=== PATIENT | female | born 1950 | race Caucasian/White ===

== ENCOUNTER → 2022-05-06 08:57 | Outpatient (CLI) | payer OTHER, SELFPAY ==
--- NOTE | 2022-05-06 09:02 | DI.MG.S_ITS ---
BILATERAL DIGITAL SCREENING MAMMOGRAM 3D/2D WITH CAD: 05/06/2022 CLINICAL: Baseline by default. No prior exams were available for comparison. There are scattered areas of fibroglandular density in both breasts (category b / 25%-50% glandular tissue). Current study was also evaluated with a Computer Aided Detection (CAD) system. There is an oval equal density mass with an obscured and circumscribed margin in the right breast at 11 o'clock anterior depth. There are grouped fine calcifications in the left breast at 1 o'clock anterior depth. No other significant masses or calcifications are seen in either breast. IMPRESSION: INCOMPLETE: NEEDS ADDITIONAL IMAGING EVALUATION The oval equal density mass in the right breast at 11 o'clock anterior depth is indeterminate. Mediolateral and spot compression views as well as additional views with possible ultrasound are recommended. The grouped fine calcifications in the left breast at 1 o'clock anterior depth are indeterminate. Mediolateral, spot magnification, and additional views are recommended. Based on the Tyrer Cuzick model (a risk assessment model) the patient's lifetime risk is 4.1% and her 10 year risk is 2.4%. According to the ACR, ACS, and NCCN guidelines, an annual breast MRI exam along with mammogram is recommended if the patient's lifetime risk is 20% or greater. This exam was interpreted at Station ID: [id number]. NOTE: For mammograms, a report in lay terms will be sent to the patient. Approximately 15% of breast malignancies will not be visualized mammographically. In the management of a palpable breast mass, a negative mammogram must not discourage biopsy of a clinically suspicious lesion. Electronically Signed By: Trevor watson/audrey:05/07/2022 19:48:28 letter sent: Additional Imaging Needed ACR BI-RADS Category 0: Incomplete 3340F
== END ==
PROVIDERS: Visit Provider Family Medicine
DX: Z13.21 Encounter for screening for nutritional disorder (principal)
CPT/HCPCS: 77063; 77067

== ENCOUNTER → 2023-03-05 11:38 | Outpatient (CLI) | payer OTHER, SELFPAY ==
--- NOTE | 2023-03-05 | DI.RAD.S_ITS ---
Bone Density Report Name: IVAN TEE Age: 72 Sex: Female Ethnicity: White Date of : 1950 Indication: postmenopausal; screening for osteoporosis; prior fracture; Referring Provider: ODALIS LAWLER Study: Bone densitometry was performed. Exam Date: March 05, 2023 Accession number: [id number] Bone Density: Region BMD T-score Z-score Classification AP Spine(L1, L2, L3) 0.786 -2.1 0.0 Osteopenia Femoral Neck (Right) 0.631 -2.0 -0.2 Osteopenia Total Hip (Right) 0.701 -2.0 -0.5 Osteopenia Total Forearm (Left) 0.432 -2.7 -0.7 Osteoporosis 1/3 Forearm (Left) 0.530 -2.7 -0.6 Osteoporosis UD Forearm (Left) 0.323 -2.1 -0.6 Osteopenia World Health Organization criteria for BMD impression classify patients as: Normal (T-score at or above -1.0), Osteopenia (T-score between -1.0 and -2.5), or Osteoporosis (T-score at or below -2.5). 10-year Fracture Risk: FRAX not reported because: Prior hip or vertebral fracture Impression: The patient has low bone mass, based on the Total Spine T-score. The patient has risk factors, including: previous fracture. Discussion: INCREASED RISK OF FRACTURE DUE TO HISTORY OF FRACTURE. The patient's previous fracture puts the patient at high risk of a future fracture. In untreated patients, the risk of osteoporotic fracture increases approximately two-fold for each 1.0 SD decrease in T-score. Low bone density is not the only risk factor for fracture; also consider factors such as patient's age, frailty or poor health, risk of falling, risk of injury, previous osteoporotic fracture, family history of osteoporosis, cigarette smoking, low body weight, etc. Not everyone with a low trauma fracture has osteoporosis; osteomalacia and other metabolic bone disorders should also be considered. Patients who have osteoporosis should be evaluated for specific diseases and conditions (secondary causes) that may cause or contribute to bone loss and fracture risk. National Osteoporosis Foundation (NOF) recommends pharmacologic intervention for patients with a prior hip or vertebral fracture regardless of BMD T-score. The patient should follow a healthful lifestyle (good nutrition with adequate calcium and vitamin D, and appropriate weight-bearing exercise). Follow-Up: Consider a repeat BMD and Vertebral Fracture Assessment (VFA) exam in 2 years or sooner if medically necessary, to reassess this patient's status. Reported by: FLAVIA MORRISON M.D. on 03/05/2023 12:29:00 PM.
== END ==
PROVIDERS: PCP Physician Assistant Medical; Referring Provider Physician Assistant Medical; Visit Provider Physician Assistant Medical
DX: Z13.820 Encounter for screening for osteoporosis (principal); M85.89 Other specified disorders of bone density and structure, multiple sites; M81.0 Age-related osteoporosis without current pathological fracture
CPT/HCPCS: 77080; 77081

== ENCOUNTER → 2024-06-13 11:14 | Outpatient (CLI) | payer OTHER, SELFPAY ==
--- NOTE | 2024-06-13 11:16 | DI.MG.S_ITS ---
BILATERAL DIGITAL SCREENING MAMMOGRAM 3D/2D WITH CAD: 06/13/2024 CLINICAL: Routine screening. Family history of breast cancer. Comparison is made to exams dated: 05/06/2022 mammogram - [facility], 04/20/2020 mammogram, and 03/27/2019 mammogram - outside location. The breasts are heterogeneously dense, which may obscure small masses (category c / 51-75% glandular tissue). Current study was also evaluated with a Computer Aided Detection (CAD) system. No significant masses, calcifications, or other findings are seen in either breast. There has been no significant interval change. IMPRESSION: NEGATIVE There is no mammographic evidence of malignancy. A 1 year screening mammogram is recommended. Based on the Tyrer Cuzick model (a risk assessment model) the patient's lifetime risk is 5.5% and her 10 year risk is 3.7%. According to the ACR, ACS, and NCCN guidelines, an annual breast MRI exam along with mammogram is recommended if the patient's lifetime risk is 20% or greater. This exam was interpreted at Station ID: [id number]. NOTE: For mammograms, a report in lay terms will be sent to the patient. Approximately 15% of breast malignancies will not be visualized mammographically. In the management of a palpable breast mass, a negative mammogram must not discourage biopsy of a clinically suspicious lesion. Electronically Signed By: Shaahb lópez/audrey:06/13/2024 14:42:18 letter sent: Normal Exam ACR BI-RADS Category 1: Negative
== END ==
LOC: MAMMO 11:16
DX: Z12.31 Encounter for screening mammogram for malignant neoplasm of breast (principal); R92.333 Mammographic heterogeneous density, bilateral breasts; Z80.3 Family history of malignant neoplasm of breast
CPT/HCPCS: 77063; 77067